=== PATIENT | female | born 1935 | race African-American/Black ===

== ENCOUNTER 2021-12-20 15:03 | Emergency (ER) | payer MEDICARE, OTHER ==
[~2021-12-20] VITALS: Ht 172.7 cm; Wt 72.6 kg
[2021-12-20] MEDS ORDERED: SODIUM CHLORIDE 0.9% 1000ML 1,000 ML IV STA (15:23)
[2021-12-20 15:32] LABS: BASOPHILS % 0.2 % (0.0-1.0); EOSINOPHILS % 0.8 % (0.0-6.0); HEMOGLOBIN 12.8 g/dL (12.0-16.0); LYMPHOCYTES # (AUTO) 0.5 (1.0-3.2); LYMPHOCYTES % 10.2 % (18.0-39.1); MEAN CORPUSCULAR HEMOGLOBIN 29.9 pg (28-32); MEAN CORPUSCULAR HGB CONC 31.2 g/dL (31-35); MEAN CORPUSCULAR VOLUME 95.8 fL (81-99); MONOCYTES # (AUTO) 0.5 (0.2-0.8); MONOCYTES % 10.2 % (4.4-11.3); PLATELET COUNT 214 x10e3/uL (140-360); RED BLOOD COUNT 4.28 x10e6/uL (3.6-5.1); RED CELL DISTRIBUTION WIDTH 15.5 % (11.7-14.4)
[2021-12-20 15:47] LABS: INR 0.94; PROTHROMBIN TIME 13.4 seconds (11.9-14.5)
[2021-12-20 15:52] LABS: PARTIAL THROMBOPLASTIN TIME 31.9 seconds (23.8-35.5)
[2021-12-20 16:08] LABS: CLARITY,URINE HAZY (CLEAR); COLOR,URINE YELLOW (YELLOW); KETONES,URINE NEGATIVE (NEGATIVE); LEUKOCYTE ESTERASE ,URINE NEGATIVE (NEGATIVE); NITRITE,URINE NEGATIVE (NEGATIVE); PROTEIN,URINE DIPSTICK NEGATIVE (NEGATIVE); URINE UROBILINOGEN 0.2 mg/dL (0.2 - 1)
[2021-12-20 16:09] LABS: BACTERIA,URINE FEW /HPF; EPITHELIAL CELLS,URINE MODERATE /LPF; RBC,URINE 0-5 /HPF (0-5); WBC,URINE (MAN) 0-5 /HPF (0-5)
[2021-12-20 16:21] LABS: ALBUMIN 2.6 g/dL (3.5-5.0); ALBUMIN/GLOBULIN RATIO 0.6 (0.8-2.0); ANION GAP 14.5 mmol/L (8-16); CALCIUM 8.3 mg/dL (8.4-10.2); CREATININE, SERUM 1.01 mg/dL (0.57-1.11); POTASSIUM 4.5 mmol/L (3.5-5.1)
[2021-12-20 16:28] LABS: CREATINE KINASE MB 1.7 ng/mL (0-5.0)
[2021-12-20] MEDS ORDERED: INSULIN REGULAR, HUMAN 100 UNIT/1 ML IV ONE (16:45)
== END 2021-12-20 19:54 | disposition home or self-care (01) ==
LOC: ER 15:08
DX: E11.65 Type 2 diabetes mellitus with hyperglycemia (principal); E11.40 Type 2 diabetes mellitus with diabetic neuropathy, unspecified; E78.5 Hyperlipidemia, unspecified; W18.39XA Other fall on same level, initial encounter; Y93.01 Activity, walking, marching and hiking; Y92.89 Other specified places as the place of occurrence of the external cause; R94.31 Abnormal electrocardiogram [ECG] [EKG]
CPT/HCPCS: 36415; 70450; 71045; 72125; 80053; 81001; 82550; 82553; 84484; 85025; 85610; 85730; 93005; 99284; J1817; J7030